=== PATIENT | male | born 1960 | race American Indian/Alaskan Native ===

== ENCOUNTER 2017-01-09 10:59 | Emergency (ER) | payer MEDICARE ==
[2017-01-09 14:04] LABS: Hematocrit 42.8 % (35.5-45.6); Hemoglobin 13.8 gm/dl (11.8-15.2); Mean Corpuscular HGB Conc 32 % (32-34); Mean Corpuscular Hemoglobin 28 pg (28-32); Mean Corpuscular Volume 87 fl (84-94); Platelet Count 242 K/mm3 (140-440); Red Blood Count 4.92 M/mm3 (3.65-5.03); Red Cell Distribution Width 13.6 % (13.2-15.2); White Blood Count 11.4 K/mm3 (4.5-11.0)
[2017-01-09 14:23] LABS: BUN/Creatinine Ratio 12.3; Calcium 9.3 mg/dL (8.4-10.2); Chloride 91.1 mmol/L (98-107)
[2017-01-09 14:55] LABS: Bilirubin,Urine NEG (Negative); Blood,Urine MOD (Negative); Ketones,Urine TR mg/dL (Negative); Leukocyte Esterase,Urine NEG (Negative); Mucus,Urine FEW /HPF; Nitrite,Urine NEG (Negative); Urobilinogen,Urine < 2.0 mg/dL (<2.0)
[2017-01-09] MEDS ORDERED: TYLENOL PO ONE (15:47)
[2017-01-09] MEDS ORDERED: NACL 0.9% 1000 ML 1,000 ML IV ONE (16:16)
[2017-01-09 16:33] LABS: Basophils % (Manual) 0 % (0.0-1.8); Blastocytes % (Manual) 0 %
[2017-01-09 16:34] LABS: Diff Status Complete; Platelet Estimate Consistent w Auto; RBC Morphology Normal
[2017-01-09 16:36] LABS: Potassium 5.1 mmol/L (3.6-5.0)
[2017-01-09] MEDS ORDERED: BENADRYL IV ONE (16:38)
[2017-01-09] MEDS ORDERED: REGLAN IV ONE (16:38)
[2017-01-09] MEDS ORDERED: TYLENOL #3 PO ONE (16:38)
--- NOTE | 2017-01-09 18:20 | Emergency Department Report ---
HPI - General Chief Complaint: Hyperglycemia Time Seen by Provider: 01/09/17 16:15 - HPI HPI: The patient is a 56-year-old male who presents for evaluation of headache and head congestion. The patient reports 2 days of frontal headache, mild to moderate, currently 5/10 in severity, aching in quality, waxing and waning, on and off since onset, and associated with cough. His headache is also exacerbated with coughing. He states that his cough has been nonproductive, and that he has also experienced nasal congestion and postnasal drip. The patient denies fever, head injury, neck pain, neck stiffness, vision or hearing changes, smell or taste changes, paresthesias, facial drooping, slurred speech, seizure-like activity, urine or bowel incontinence or retention, other focal neurological deficit, dyspnea, chest pain, hemoptysis, abdominal pain, dysuria, rash. ED Past Medical Hx - Past Medical History Previous Medical History?: Yes Hx Diabetes: Yes Additional medical history: Sinusitis - Surgical History Past Surgical History?: No - Social History Smoking Status: Never Smoker Substance Use Type: Prescribed - Medications Home Medications: Home Medications Medication Instructions Recorded Confirmed Last Taken Type Acetaminophen/Codeine [Tylenol #3] 1 tab PO Q6H PRN #15 tab 01/09/17 Unknown Rx Amoxicillin/K Clav Tab [Augmentin 1 tab PO Q12HR #14 tab 01/09/17 Unknown Rx 875 mg] Ondansetron [Zofran TAB] 4 mg PO Q8HR PRN #15 tablet 01/09/17 Unknown Rx metFORMIN [Glucophage] 500 mg PO BID 01/09/17 01/09/17 Unknown History ED Review of Systems ROS: Stated complaint: HIGH BLOOD SUGAR Other details as noted in HPI Constitutional: denies: fever HEENT: Reports nasal congestion denies: throat or neck pain Respiratory: Reports cough, denies: shortness of breath Cardiovascular: denies: chest pain Endocrine: denies unexplained weight loss or gain Gastrointestinal: denies: abdominal pain, nausea Genitourinary: denies: dysuria Musculoskeletal: denies: leg swelling Skin: denies: rash Neurological: reports headache Hematological/Lymphatic: denies: easy bleeding or easy bruising Psych: denies sadness or hopelessness Physical Exam - Physical Exam Vital Signs: Vital Signs 01/09/17 01/09/17 01/09/17 11:47 15:04 15:06 Temperature 100 F H Pulse Rate 93 H Respiratory 16 Rate Blood Pressure 140/85 O2 Sat by Pulse 96 98 98 Oximetry 01/09/17 01/09/17 01/09/17 15:10 15:16 15:21 Temperature Pulse Rate Respiratory Rate Blood Pressure 177/110 O2 Sat by Pulse 98 98 97 Oximetry 01/09/17 01/09/17 01/09/17 15:25 15:30 15:35 Temperature Pulse Rate 92 H 93 H Respiratory 13 19 Rate Blood Pressure 136/83 128/85 128/85 O2 Sat by Pulse 95 98 98 Oximetry 01/09/17 01/09/17 15:42 17:23 Temperature 101.8 F H Pulse Rate Respiratory 16 Rate Blood Pressure O2 Sat by Pulse Oximetry Physical Exam: General: well-nourished, well-developed, no acute distress Head: Normocephalic, atraumatic, frontal sinus tenderness to percussion present Eyes: normal sclera ENT: Mucous membranes are pale and dry Neck: No neck stiffness, no cervical adenopathy Respiratory: Breath sounds equal bilaterally, no wheezing, rales, or rhonchi Cardio: S1 and S2 present, no murmurs, rubs, gallops, capillary refill is delayed Abdomen: Normoactive bowel sounds, soft abdomen, no rigidity, no guarding or rebound tenderness Musc: No pitting edema Skin: No rash Neuro: no facial drooping, normal speech Psych: Normal affect ED Course Vital Signs 01/09/17 01/09/17 01/09/17 11:47 15:04 15:06 Temperature 100 F H Pulse Rate 93 H Respiratory 16 Rate Blood Pressure 140/85 O2 Sat by Pulse 96 98 98 Oximetry 01/09/17 01/09/17 01/09/17 15:10 15:16 15:21 Temperature Pulse Rate Respiratory Rate Blood Pressure 177/110 O2 Sat by Pulse 98 98 97 Oximetry 01/09/17 01/09/17 01/09/17 15:25 15:30 15:35 Temperature Pulse Rate 92 H 93 H Respiratory 13 19 Rate Blood Pressure 136/83 128/85 128/85 O2 Sat by Pulse 95 98 98 Oximetry 01/09/17 01/09/17 15:42 17:23 Temperature 101.8 F H Pulse Rate Respiratory 16 Rate Blood Pressure O2 Sat by Pulse Oximetry ED Medical Decision Making - Lab Data Result diagrams: 01/09/17 12:02 01/09/17 12:02 - Medical Decision Making The patient was seen and examined by myself. The patient is placed on a bus driver/monitor and continuous pulse ox. On initial evaluation, the patient was found to be in no distress. Evaluation orders were placed. The patient is given 1 L normal saline fluid bolus for treatment of dehydration. Patient given a tablet of Tylenol 3 for his fever and frontal sinus pain. Lab results reveal elevated glucose 370, with nml bicarb and AG, not consistent with DKA, and otherwise labs were grossly unremarkable. Patient given IV insulin for treatment of hyperglycemia. On reevaluation the patient's temperature has defervesced, and blood sugar has decreased below 250. Evaluation findings are consistent with acute sinusitis. The patient is given a prescription for Augmentin for treatment of his sinusitis. The patient was reevaluated and reported that his symptoms were resolved. On reexamination he remains without any neck stiffness or neuro deficits, negative for any signs of meningitis at this time. The patient is stable for discharge with outpatient follow-up. The patient is given follow-up and return instructions. The patient expressed understanding and agreed with the plan. The patient is discharged in stable condition. Critical care attestation.: If time is entered above; I have spent that time in minutes in the direct care of this critically ill patient, excluding procedure time. ED Disposition Clinical Impression: Dehydration, Acute hyperglycemia Acute nonintractable headache Qualifiers: Headache type: unspecified Qualified Code(s): R51 - Headache Sinusitis, acute Qualifiers: Sinusitis location: frontal Recurrence: non-recurrent Qualified Code(s): J01.10 - Acute frontal sinusitis, unspecified Disposition: DISCHARGED TO HOME OR SELFCARE Is pt being admited?: No Does the pt Need Aspirin: No Condition: Stable Instructions: Diabetes Mellitus Type 2 in Adults (ED), Acute Headache (ED), Sinusitis (ED) Prescriptions: Acetaminophen/Codeine [Tylenol #3] 1 tab PO Q6H PRN #15 tab PRN Reason: Pain Amoxicillin/K Clav Tab [Augmentin 875 mg] 1 tab PO Q12HR #14 tab Ondansetron [Zofran TAB] 4 mg PO Q8HR PRN #15 tablet PRN Reason: Nausea Referrals: PRIMARY CARE, [Primary Care Provider] - 3-5 Days Time of Disposition: 17:56
[2017-01-09 19:24] VITALS: BP 98/62
== END 2017-01-09 19:25 | disposition home or self-care (01) ==
LOC: ED 10:59
DX: J01.10 Acute frontal sinusitis, unspecified (principal); E86.0 Dehydration; E11.65 Type 2 diabetes mellitus with hyperglycemia
CPT/HCPCS: 36415; 80048; 81001; 82010; 82805; 82962; 85007; 85025; 96361; 96374; 96375; 99284; J1200; J2765; J7030; J1815